=== PATIENT | female | born 1950 | race Caucasian/White ===

== ENCOUNTER 2017-11-21 13:44 | Emergency (ER) | payer MEDICARE ==
[~2017-11-21] VITALS: Ht 157.5 cm; Wt 70.0 kg
[~2017-11-21 13:44] MED LIST: ATIVAN1 M1 OR; EFFEXOR XR150 MG OR; EFFEXOR50 MG OR; FLONASE0.05 %; K-LOR20 MEQ OR; LOMOTIL2.5 MG PO; LORTAB 5 OR; LORTAB 5-325 MG1 TAB PO; PENICILLN VK500 M1 OR; PREMPRO1 TA1 OR; SYNTHROID100 MCG PO; SYNTHROID125 MCG OR; SYNTHROID50 MCG OR; ZANTAC150 MG OR
[2017-11-21 15:17] LABS: HEMATOCRIT 37.4 % (37.0-47.0); HEMOGLOBIN 13.2 g/dl (12.0-16.0); IMMATURE GRANULOCYTES 1.2 % (0.0-1.0); MEAN CELL VOLUME 83.9 fL CALC (80.0-100.0); MEAN CORPUSCULAR HGB 29.6 pG CALC (26.0-32.0); MEAN CORPUSCULAR HGB CONC 35.3 g/L CALC (32.0-36.0); NEUT# 7.1 thou/uL (2.00-7.15); RED BLOOD COUNT 4.46 mill/uL (4.20-5.60); RED CELL DISTRI WIDTH 12.7 % (11.5-15.5)
[2017-11-21 15:18] LABS: URINE BILIRUBIN - DIPSTICK NEGATIVE (NEGATIVE); URINE BLOOD DIPSTICK NEGATIVE (NEGATIVE); URINE CLARITY CLEAR; URINE COLOR YELLOW; URINE GLUCOSE - DIPSTICK NEGATIVE (NEGATIVE); URINE KETONE 15 mg/dL (NEGATIVE); URINE LEUK ESTERASE NEGATIVE (NEGATIVE); URINE NITRITE - DIPSTICK NEGATIVE (Negative); URINE PH 6.5 (4.5-8.0); URINE PROTEIN - DIPSTICK NEGATIVE (NEG-TRACE); URINE UROBILINOGEN - DIPSTICK 0.2 E.U./dL (0.2)
[2017-11-21 15:21] LABS: BARBITURATES NEGATIVE (NEGATIVE); COCAINE NEGATIVE (NEGATIVE); METHADONE NEGATIVE (NEGATIVE); TETRAHYDROCANNABIONOL NEGATIVE (NEGATIVE); TRICYLIC ANTIDEPRESSANTS NEGATIVE (NEGATIVE)
[2017-11-21 15:22] LABS: OXCYCODONE NEGATIVE (NEGATIVE)
[2017-11-21 15:33] LABS: ALKALINE PHOSPHATASE 80 u/l (38-126); BILIRUBIN, TOTAL 0.7 mg/dL (0.0-1.4); BUN 5 mg/dL (8-23); BUN/CREATININE RATIO 6 (12-20 (CALC)); CARBON DIOXIDE 28 mmol/l (22-30); CPK 169 u/l (30-165); CREATININE 0.8 mg/dL (0.5-1.0); ETHYL ALCOHOL 0 mg/dl (0-30); GFR > 60 ML/MIN (>=60 (CALC)); GFR FOR AFR.AMER. > 60 ML/MIN (>=60 (CALC)); MAGNESIUM 1.6 mg/dL (1.6-2.3); SGOT/AST 27 u/l (9-36); SGPT/ALT 39 u/l (11-66); TOTAL PROTEIN 7.9 g/dL (6.3-8.2)
[2017-11-21 15:35] LABS: ALBUMIN 4.7 g/dL (3.2-5.0); ANION GAP 19 (6-22 (CALC)); CHLORIDE 81 mmol/l (95-108); POTASSIUM 2.6 mmol/l (3.5-5.1); SODIUM 125 mmol/l (137-146)
[2017-11-21 16:03] LABS: TSH, 3RD GENERATION 4.94 uIU/mL (0.47 - 4.68)
[2017-11-21] MEDS ORDERED: LOMOTIL2.5 MG PO (16:52)
[2017-11-21] MEDS ORDERED: K-DUR/KLOR-CON20 MEQ PO (16:52)
[2017-11-21 17:07] VITALS: BP 153/86
== END 2017-11-21 17:10 | disposition home or self-care (01) ==
LOC: ED 13:44
PROVIDERS: Family Medicine
DX: M62.89 Other specified disorders of muscle (principal); R25.3 Fasciculation; R11.0 Nausea; T43.215A Adverse effect of selective serotonin and norepinephrine reuptake inhibitors, initial encounter; E87.1 Hypo-osmolality and hyponatremia; E87.6 Hypokalemia; I10 Essential (primary) hypertension; K21.9 Gastro-esophageal reflux disease without esophagitis; E07.9 Disorder of thyroid, unspecified

== ENCOUNTER 2018-10-30 11:50 | Observation (INO) | payer MEDICARE, OTHER ==
[~2018-10-30] VITALS: Ht 160 cm; Wt 60.8 kg
[~2018-10-30 11:50] MED LIST changes: -EFFEXOR XR150 MG OR; +EFFEXOR XR150 MG PO; +K-DUR/KLOR-CON20 MEQ PO
[2018-10-30 14:21] LABS: HEMATOCRIT 41.9 % (37.0-47.0); HEMOGLOBIN 13.4 g/dl (12.0-16.0); IMMATURE GRANULOCYTES 0.3 % (0.0-5.0); MEAN CORPUSCULAR HGB 28.9 pG CALC (26.0-32.0); NEUT# 7.28 thou/uL (2.00-7.15); RED BLOOD COUNT 4.64 mill/uL (4.20-5.60)
[2018-10-30 14:22] LABS: MEAN CELL VOLUME 90.3 fL CALC (80.0-100.0)
[2018-10-30 14:40] LABS: BUN 8 mg/dL (8-23); BUN/CREATININE RATIO 10 (12-20 (CALC)); CARBON DIOXIDE 26 mmol/l (22-30); CREATININE 0.8 mg/dL (0.5-1.0); GFR > 60 ML/MIN (>=60 (CALC)); GFR FOR AFR.AMER. > 60 ML/MIN (>=60 (CALC))
[2018-10-30 14:52] LABS: ANION GAP 15 (6-22 (CALC)); CHLORIDE 100 mmol/l (95-108); POTASSIUM 3.7 mmol/l (3.5-5.1); SODIUM 137 mmol/l (137-146)
[2018-10-30] MEDS ORDERED: XANAX1 MG PO (15:05)
[2018-10-30] MEDS ORDERED: LISINOPRIL20 MG PO (15:06)
[2018-10-30] MEDS ORDERED: EFFEXOR XR75 MG PO (15:08)
[2018-10-30 16:58] VITALS: BP 152/95
[2018-10-30 19:50] VITALS: BP 123/74
[2018-10-31 00:40] VITALS: BP 115/71
[2018-10-31 04:58] VITALS: BP 110/70
[2018-10-31 06:19] LABS: HEMATOCRIT 38.1 % (37.0-47.0); HEMOGLOBIN 12.6 g/dl (12.0-16.0); IMMATURE GRANULOCYTES 0.4 % (0.0-5.0); MEAN CELL VOLUME 90.3 fL CALC (80.0-100.0); MEAN CORPUSCULAR HGB 29.9 pG CALC (26.0-32.0); MEAN CORPUSCULAR HGB CONC 33.1 g/L CALC (32.0-36.0); NEUT# 2.82 thou/uL (2.00-7.15); RED BLOOD COUNT 4.22 mill/uL (4.20-5.60)
[2018-10-31 06:32] LABS: ALBUMIN 3.8 g/dL (3.2-5.0); ALKALINE PHOSPHATASE 90 u/l (38-126); ANION GAP 11 (6-22 (CALC)); BILIRUBIN, TOTAL 0.4 mg/dL (0.0-1.4); BUN 9 mg/dL (8-23); BUN/CREATININE RATIO 12 (12-20 (CALC)); CARBON DIOXIDE 26 mmol/l (22-30); CHLORIDE 105 mmol/l (95-108); CREATININE 0.8 mg/dL (0.5-1.0); GFR > 60 ML/MIN (>=60 (CALC)); GFR FOR AFR.AMER. > 60 ML/MIN (>=60 (CALC)); POTASSIUM 3.9 mmol/l (3.5-5.1); SGOT/AST 25 u/l (9-36); SODIUM 138 mmol/l (137-146); TOTAL PROTEIN 6.6 g/dL (6.3-8.2)
[2018-10-31 07:37] VITALS: BP 120/79
[2018-10-31 11:09] VITALS: BP 117/77
== END 2018-10-31 13:05 | disposition home or self-care (01) ==
LOC: ED 11:50 → ED-I 15:05 → ED 15:19 → MS2 15:20
PROVIDERS: Family Medicine; ADMIT Internal Medicine Nephrology; ATTEND Internal Medicine Nephrology
DX: R07.89 Other chest pain (principal); I10 Essential (primary) hypertension; F31.9 Bipolar disorder, unspecified; K59.00 Constipation, unspecified; F43.10 Post-traumatic stress disorder, unspecified; K21.9 Gastro-esophageal reflux disease without esophagitis; E03.9 Hypothyroidism, unspecified; R11.0 Nausea